=== PATIENT | male | born 1995 | race Two or more races ===

== ENCOUNTER 2022-04-07 15:11 | Emergency (ER) | payer OTHER ==
[~2022-04-07] VITALS: Ht 188 cm; Wt 83.5 kg
[~2022-04-07 15:11] MED LIST: MEDROLPACK PO
== END 2022-04-07 21:57 | disposition home or self-care (01) ==
LOC: ER 15:11
DX: S93.402A Sprain of unspecified ligament of left ankle, initial encounter (principal); W18.39XA Other fall on same level, initial encounter; Y93.89 Activity, other specified; Y92.9 Unspecified place or not applicable; Y99.9 Unspecified external cause status